=== PATIENT | female | born 1945 | race Caucasian/White ===

== ENCOUNTER 2017-06-25 21:54 | Emergency (ER) | payer MEDICARE, BC ==
[2017-06-25 22:38] VITALS: BP 133/93; PULSE 99; RESP 18; O2SAT 96
[2017-06-25 23:06] VITALS: TEMP 97.3
== END 2017-06-25 23:03 | disposition home or self-care (01) | DRG 151 ==
LOC: ED 21:54
DX: R04.0 Epistaxis (principal); Z79.01 Long term (current) use of anticoagulants
CPT/HCPCS: 99282

== ENCOUNTER 2018-07-12 10:12 | Inpatient (IN) | payer BC, MEDICARE ==
[2018-07-12] MEDS ORDERED: SODIUM CHLORIDE 0.9% FLUSH 10 ML SOL IV PRN (10:25)
[2018-07-12] MEDS: SODIUM CHLORIDE 0.9% FLUSH 10 ML SOL IV SCH ×2 (11:00→19:25)
[2018-07-12 11:14] LABS: INR 1.61 (0.86-1.12)
[2018-07-12] MEDS ORDERED: ALBUTEROL NEB SOL 2.5MG/3ML 1 VIAL SOL INH PRN (13:41)
[2018-07-12] MEDS ORDERED: FUROSEMIDE 20mg SOL IV ONE (13:49)
[2018-07-12] MEDS ORDERED: WARFARIN SODIUM 2.5 MG TAB PO SCH (18:00)
[2018-07-12] MEDS: ACETAMINOPHEN 500 MG 500 MG TAB PO PRN (18:25)
[2018-07-12] MEDS ORDERED: METOPROLOL SUCCINATE 50 MG ER TAB ONE ×2 (20:51→21:01)
[2018-07-12] MEDS: METOPROLOL SUCCINATE 50 MG TER PO SCH (20:58)
[2018-07-12] MEDS ORDERED: LOVASTATIN 20 MG TABLET PO SCH (21:00)
[2018-07-13] MEDS: SODIUM CHLORIDE 0.9% FLUSH 10 ML SOL IV SCH ×2 (05:36→09:57)
[2018-07-13] MEDS: ACETAMINOPHEN 500 MG 500 MG TAB PO PRN ×2 (06:23→14:33)
[2018-07-13 07:50] VITALS: BP 145/81; PULSE 58; RESP 18; TEMP 96.2; O2SAT 97
[2018-07-13 08:25] LABS: CALCIUM 9.3 mg/dl (8.5-10.1); CARBON DIOXIDE 28.5 mEq/L (21-32); CREATININE 1.26 mg/dl (0.60-1.00); POTASSIUM 4.1 mMol/L (3.5-5.1)
[2018-07-13 08:28] LABS: BASOPHILS % (AUTO) 1 % (0-3); EOSINOPHILS % (AUTO) 3 % (0-9); HEMATOCRIT 43 % (35-47); HEMOGLOBIN 12.5 gm/dl (12.0-15.5); LYMPHOCYTES % (AUTO) 15.2 % (10-50); MEAN CORPUSCULAR HGB CONC 29.1 gm/dl (32.0-36.0); MONOCYTES % (AUTO) 7.9 % (0-12); NEUTROPHILS % (AUTO) 72.4 % (37-80)
[2018-07-13] MEDS ORDERED: LORATADINE 10 MG TAB PO SCH (09:00)
[2018-07-13] MEDS ORDERED: CALCIUM CARBONATE 500 MG TAB PO SCH (09:00)
[2018-07-13] MEDS ORDERED: ASPIRIN 81 MG CHEWABLE CTB PO SCH (09:00)
[2018-07-13] MEDS ORDERED: GLIMEPIRIDE 2 MG TAB PO SCH (09:00)
[2018-07-13] MEDS ORDERED: POTASSIUM CHLORIDE 10 MEQ TER PO SCH (09:00)
[2018-07-13 09:01] LABS: MEAN CORPUSCULAR VOLUME 79 fL (81-99)
[2018-07-13 09:02] LABS: ANISOCYTOSIS SLIGHT
[2018-07-13] MEDS: METOPROLOL SUCCINATE 50 MG TER PO SCH (10:05)
[2018-07-13] MEDS ORDERED: METFORMIN HYDROCHLORIDE 500 MG TAB PO SCH (17:30)
[2018-07-13] MEDS ORDERED: WARFARIN SODIUM 2.5 MG TAB PO SCH (18:00)
[2018-07-14] MEDS ORDERED: FUROSEMIDE 20 MG TAB PO SCH (09:00)
== END 2018-07-13 16:00 | disposition home or self-care (01) | DRG 310 ==
LOC: ACUTE CARE 10:33
PROVIDERS: ADMIT Family Medicine; ATTEND Family Medicine
DX: R00.1 Bradycardia, unspecified (principal); I48.0 Paroxysmal atrial fibrillation; I50.9 Heart failure, unspecified; E11.9 Type 2 diabetes mellitus without complications; Z95.2 Presence of prosthetic heart valve; Z79.01 Long term (current) use of anticoagulants; R06.02 Shortness of breath
CPT/HCPCS: 36415; 80048; 83880; 84484; 85025; 85610; 93012; J1940; A9270-GY